=== PATIENT | male | born 1980 | race Caucasian/White ===

== ENCOUNTER 2016-11-03 03:25 | Inpatient (IN) | payer OTHER ==
[~2016-11-03] VITALS: Ht 167.6 cm; Wt 84.4 kg
[2016-11-03 03:36] VITALS: BP 157/93
--- NOTE | 2016-11-03 03:41 | NUR ---
Naz palm in [facility] - 11/03/16 at 0342 by [facility] TO BED 4
--- NOTE | 2016-11-03 03:42 | NUR ---
TO BED 5.
--- NOTE | 2016-11-03 03:43 | NUR ---
36Y M BIB SELF C/O RUQ PAIN X 3 YEARS WORST TODAY 8/10;VOMIT 5 EPISODES IN 3 HOURS . SKIN IS PINK/WARM/DRY; AAOX4 WITH EVEN AND STEADY GAIT; LUNGS CLEAR BL; HR EVEN AND REGULAR; PT DENIES ANY FEVER, CP, SOB, OR COUGH AT THIS TIME; PATIENT STATES PAIN OF 8/10 AT THIS TIME; VSS; PATIENT POSITIONED FOR COMFORT; HOB ELEVATED; BEDRAILS UP X2; BED DOWN. ER MD MADE AWARE OF PT STATUS.
--- NOTE | 2016-11-03 03:44 | NUR ---
Patient being evaluated by physician at bedside.
[2016-11-03] MEDS ORDERED: ONDANSETRON 4 MG/2 ML VIAL IVP ONE (03:45)
[2016-11-03] MEDS ORDERED: NACL 0.9% 1,000 ML IV ONE ×2 (03:55→05:20)
[2016-11-03] MEDS ORDERED: MORPHINE SULFATE 4 MG/ML SYR IVP ONE (03:55)
[2016-11-03 03:57] LABS: BASOPHILS # (AUTO) 0.2 K/uL (0.00-0.22); BASOPHILS % (AUTO) 2.9 % (0.0-2.0); EOSINOPHILS # (AUTO) 0.2 K/uL (0-0.4); EOSINOPHILS % (AUTO) 2.7 % (0.0-4.0); HEMATOCRIT 49.3 % (36-52); HEMOGLOBIN 16.5 g/dL (12.0-18.0); LYMPHOCYTES # (AUTO) 2.4 K/uL (2.0-11.5); LYMPHOCYTES % (AUTO) 32.4 % (20.5-51.1); MEAN CORPUSCULAR HEMOGLOBIN 30 pg (27-31); MEAN CORPUSCULAR HGB CONC 34 g/dL (33-37); MEAN CORPUSCULAR VOLUME 88 fL (80-94); MONOCYTES # (AUTO) 0.6 K/uL (0.8-1.0); MONOCYTES % (AUTO) 8.7 % (1.7-9.3); NEUTROPHILS # (AUTO) 4.1 K/uL (1.8-7.7); NEUTROPHILS % (AUTO) 53.3 % (42.2-75.2); PLATELET COUNT (AUTO) 266 K/uL (140-450); RED BLOOD CELL COUNT(AUTO) 5.62 MIL/uL (4.20-6.10); RED CELL DISTRIBUTION WIDTH 12.1 % (11.6-13.7); WHITE BLOOD COUNT (AUTO) 7.5 K/uL (4.8-10.8)
[2016-11-03] MEDS ORDERED: HYDROmorphone 1 MG/ML AMP IVP ONE (04:05)
[2016-11-03 04:17] LABS: ALBUMIN 3.9 g/dL (3.4-5.0); ANION GAP 15.2 (8-16); CALCIUM 8.6 mg/dL (8.5-10.1); CARBON DIOXIDE 26.3 mmol/L (21-32); CREATININE 1.1 mg/dL (0.6-1.3); POTASSIUM 3.5 mmol/L (3.5-5.1); TOTAL BILIRUBIN 1.9 mg/dL (0.0-1.0); TOTAL PROTEIN, SERUM 7.2 g/dL (6.4-8.2)
[2016-11-03 04:55] LABS: BILIRUBIN,URINE 1+ (NEGATIVE); BLOOD, URINE TRACE-L (NEGATIVE); COLOR,URINE YELLOW (YELLOW); LEUKOCYTE ESTERASE ,URINE NEGATIVE (NEGATIVE); NITRITE, URINE NEGATIVE (NEGATIVE); PROTEIN,URINE TRACE (NEGATIVE); UGLUCOSE NEGATIVE (NEGATIVE)
[2016-11-03 05:18] LABS: ICTOTEST NEGATIVE (NEGATIVE)
[2016-11-03 05:19] LABS: BACTERIA,URINE 1+ /HPF (None Seen); CALCIUM OXALATE CRYSTALS,UR 0-10 /HPF (None Seen); MUCUS,URINE 1+ /LPF (None Seen); RBC,URINE NONE SEEN /HPF (0-5); SQUAMOUS EPITHELIAL CELL,UR 0-3 (FEW) /LPF (0-3 (FEW)); WBC,URINE 0-5 (RARE) /HPF (0-5)
[2016-11-03 05:20] LABS: APPEARANCE,URINE HAZY (CLEAR)
[2016-11-03] MEDS ORDERED: PIPERACILLIN/TAZOBACTAM 3.375 GM in DEXTROSE 5% 50 ML IV ONE (05:20)
[2016-11-03] MEDS ORDERED: PIPERACILLIN/TAZOBACTAM 3.375 GM VIAL IV ONE (05:28)
[2016-11-03] MEDS ORDERED: ONDANSETRON 4 MG/2 ML VIAL IVP PRN (07:15)
[2016-11-03] MEDS ORDERED: ACETAMINOPHEN 325 MG TAB PO PRN (07:15)
[2016-11-03] MEDS ORDERED: MORPHINE SULFATE 4 MG/ML SYR IVP PRN (07:15)
--- NOTE | 2016-11-03 07:20 | NUR ---
Pt report given to MATEO GALLARDO . Transfer of care at this time.
--- NOTE | 2016-11-03 08:53 | NUR ---
Patient will be admitted to care of DR HAWTHORNE. Admited to ICU. Will go to room 3. Belongings list completed. Report to KAREN.
[2016-11-03 09:18] VITALS: BP 136/84
--- NOTE | 2016-11-03 09:18 | NUR ---
ADMITTED A 36 YEAR OLD MALE FROM ER WITH DIAGNOSIS OF PANCREATITIS,GALLSTONE.NO CO ABDOMINAL PAIN OR OTHER PAIN RIGHT NOW.NO CO SHORTNESS OF BREATH.ON ROOM AIR SATURATING 97 PERCENT.RIGHT AC 18 GAUGE SALINE LOCK .NO SIGNS OF INFILTRATION.WILL MONITOR.PT USING URINAL.
--- NOTE | 2016-11-03 10:12 | NUR ---
PATIENT HAS BEEN SCREENED AND CATEGORIZED MODERATE NUTRITION RISK. PATIENT WILL BE SEEN WITHIN 3-5 DAYS OF ADMISSION. 11/05/16-11/07/[address]
[2016-11-03] MEDS: NACL 0.45% 1,000 ML IV SCH ×3 (10:33→20:55)
[2016-11-03] MEDS ORDERED: NICOTINE TRANSD SYS 14 MG/24 HR PATCH TD SCH (12:00)
[2016-11-03 12:09] LABS: AMPHETAMINE, URINE NEG. ng/ml (NEG <=1000); BARBITURATE, URINE NEG. ng/ml (NEG <=200); BENZODIAZEPINE, URINE NEG. ng/mL (NEG <=200); CANNABINOID, URINE NEG. ng/mL (NEG <=50); COCAINE, URINE NEG. ng/mL (NEG <=300); OPIATE, URINE NEG. ng/mL (NEG <=2000); PHENCYCLIDINE SCREEN,URINE NEG. ng/mL (NEG <=25)
--- NOTE | 2016-11-03 12:48 | NUR ---
CM NOTE INITIAL REVIEW SENT TO [facility] FAX# [phone] GRACE PH# [phone]
[2016-11-03 13:00] VITALS: BP 125/71
--- NOTE | 2016-11-03 14:00 | NUR ---
NO CO PAIN
[2016-11-03 16:00] VITALS: BP 128/97
--- NOTE | 2016-11-03 16:00 | NUR ---
NO CO PAIN
--- NOTE | 2016-11-03 17:27 | NUR ---
DR JANAE DOWELL FOR CONSULT.NO CO PAIN
--- NOTE | 2016-11-03 18:20 | NUR ---
DR CARDOSO CALLED BACK AND NOTIFIED OF CONSULT.PATIENT AND FAMILY MADE AWARE
--- NOTE | 2016-11-03 19:15 | NUR ---
RECEIVED REPORT FROM PAULINA JONES. INITIAL ASSESSMENT COMPLETED. PT IS AWAKE, ALERT, ORIENTED X4. PLAN OF CARE DISCUSSED WITH THE PATIENT. DENIES PAIN AT THIS TIME. IVF INFUSING WELL AT RIGHT AC 18G, PATENT, INTACT AT THIS TIME. PT IS ON NPO. SCDS IN PLACE. NO SIGNS OF DISTRESS, PT RESTING COMFORTABLY ON BED. BED IN LOW POSITION, SAFETY MEASURE ENSURE, CALL LIGHT WITHIN REACH. WILL CONTINUE TO MONITOR.
[2016-11-03 20:00] VITALS: BP 132/74
--- NOTE | 2016-11-03 22:51 | NUR ---
PT ASLEEP. NO SIGNS OF DISTRESS NOTED. WILL CONTINUE TO MONITOR.
[2016-11-04] VITALS (7 sets, daily range): BP systolic 114–138; BP diastolic 69–95
--- NOTE | 2016-11-04 00:21 | NUR ---
PT DENIES PAIN AT THIS TIME.
--- NOTE | 2016-11-04 02:48 | NUR ---
PT IS ASLEEP AT THIS TIME. NO SIGNS OF DISTRESS. WILL CONTINUE TO MONITOR.
--- NOTE | 2016-11-04 04:46 | NUR ---
TRIBAL COUNCIL MEMBER AT BEDSIDE FOR LAB DRAW.
[2016-11-04 05:29] LABS: BASOPHILS # (AUTO) 0.2 K/uL (0.00-0.22); BASOPHILS % (AUTO) 2.5 % (0.0-2.0); EOSINOPHILS # (AUTO) 0.1 K/uL (0-0.4); EOSINOPHILS % (AUTO) 2.4 % (0.0-4.0); HEMATOCRIT 45.8 % (36-52); HEMOGLOBIN 15.5 g/dL (12.0-18.0); LYMPHOCYTES # (AUTO) 1.8 K/uL (2.0-11.5); LYMPHOCYTES % (AUTO) 28.5 % (20.5-51.1); MEAN CORPUSCULAR HEMOGLOBIN 30 pg (27-31); MEAN CORPUSCULAR HGB CONC 34 g/dL (33-37); MEAN CORPUSCULAR VOLUME 88 fL (80-94); MONOCYTES # (AUTO) 0.5 K/uL (0.8-1.0); MONOCYTES % (AUTO) 8.4 % (1.7-9.3); NEUTROPHILS # (AUTO) 3.6 K/uL (1.8-7.7); NEUTROPHILS % (AUTO) 58.2 % (42.2-75.2); PLATELET COUNT (AUTO) 211 K/uL (140-450); RED BLOOD CELL COUNT(AUTO) 5.19 MIL/uL (4.20-6.10); RED CELL DISTRIBUTION WIDTH 11.9 % (11.6-13.7); WHITE BLOOD COUNT (AUTO) 6.2 K/uL (4.8-10.8)
--- NOTE | 2016-11-04 05:34 | NUR ---
REFUSED AM CARE EXCEPT PT AGREED TO BRUSH TEETH INDEPENDENTLY.
[2016-11-04 06:09] LABS: ALBUMIN 3.4 g/dL (3.4-5.0); ANION GAP 11.7 (8-16); CALCIUM 8.2 mg/dL (8.5-10.1); CARBON DIOXIDE 29.9 mmol/L (21-32); POTASSIUM 3.6 mmol/L (3.5-5.1); TOTAL BILIRUBIN 2.7 mg/dL (0.0-1.0); TOTAL PROTEIN, SERUM 6.4 g/dL (6.4-8.2)
[2016-11-04] MEDS: NACL 0.45% 1,000 ML IV SCH ×2 (06:42→17:14)
--- NOTE | 2016-11-04 07:18 | NUR ---
REPORT GIVEN TO PAULINA MARQUES FOR CONTINUITY OF CARE. PT RESTING COMFORTABLY ON BED.
--- NOTE | 2016-11-04 07:23 | NUR ---
RECEIVED PATIENT FROM [facility] RN, AWAKE ALERT, ORIENTED TO PERSON, PLACE, DATE AND TIME. ABLE TO MAKE HIS NEEDS KNOWN. NO COMPLAINTS OF PAIN NOTED AT THIS TIME. RIGHT AC PERIPHERAL IV PATENT AND INTACT TO NS 100 ML/HR. URINE AND BOWEL CONTINENT. CALL LIGHT WITHIN REACH.
[2016-11-04] MEDS: NICOTINE TRANSD SYS 14 MG/24 HR PATCH TD SCH (08:49)
--- NOTE | 2016-11-04 09:05 | NUR ---
PATIENT'S MOTHER DB AT BEDSIDE. UPDATED OF PATIENT'S STATUS.
--- NOTE | 2016-11-04 11:02 | NUR ---
PATIENT RESTING, NO COMPLAINTS OF PAIN MADE AT THIS TIME. KEPT ON NPO.
--- NOTE | 2016-11-04 13:05 | NUR ---
TRANSFERRED PATIENT TO [facility] VIA WHEELCHAIR ACCOMPANIED BY PATIENT'S MOTHER DB, NOT IN DISTRESS. NO COMPLAINTS OF PAIN MADE. REPORT GIVEN TO PRIMARY RN. DR CARDOSO CAME AND SEEN PATIENT. WITH NEW ORDERS. PRIMARY RN AT BEDSIDE.
--- NOTE | 2016-11-04 13:10 | NUR ---
PATIENT ARRIVED FROM ICU. PATIENT AWAKE, ALERT, ORIENTED AND AMBULATORY. NO S/S OF DISTRESS NOTED. DENIES PAIN AT THIS TIME. IV LINE NOTED TO THE RIGHT AC INTACT WITH IVF INFUSING WELL. PATIENT SEEN BY DR CARDOSO. DOCTOR DISCUSSED PLANNED PROCEDURE FOR THE PATIENT TOMORROW. PATIENT VERBALIZED UNDERSTANDING
--- NOTE | 2016-11-04 15:46 | NUR ---
CM NOTE CONCURRENT REVIEW SENT TO [facility] FAX# [phone] PH# [facility]ACE [phone]
--- NOTE | 2016-11-04 19:22 | NUR ---
PATIENT REPORT GIVEN AT BEDSIDE. PATIENT ENDORSED IN STABLE CONDITION
--- NOTE | 2016-11-04 19:23 | NUR ---
RECEIVED PT FROM BEATA GALLARDO PT IS AAOX4 AMBULATORY IV ON RT ARM INFUSING WELL DENIES ANY AIN AT THIS TIME INITIAL ASSESSMENT DONE
--- NOTE | 2016-11-04 22:00 | NUR ---
PT RESTING ON BED NOT DISTRESS NOTED
[2016-11-05] VITALS: BP 120/84
--- NOTE | 2016-11-05 01:00 | NUR ---
PT VOIDING WELL DENIES ANY PAIN NOT DISTRESS NOTED
[2016-11-05] MEDS: NACL 0.45% 1,000 ML IV SCH (03:08)
[2016-11-05 04:00] VITALS: BP 128/68
--- NOTE | 2016-11-05 04:23 | NUR ---
SPONGE BATH GIVEN, LINEN CHANGED PT REMAIN STABLE AT THIS TIME NOT PAIN NOTED
--- NOTE | 2016-11-05 05:31 | NUR ---
PT RESTING ON BED NPO FOR LAP FELI THIS AM NOT DISTRESS NOTED AT THIS TIME
--- NOTE | 2016-11-05 05:49 | NUR ---
PT SLEEPING DENIES ANY PAIN IV ON RT ARM INFUSING WEL
[2016-11-05 06:34] LABS: BASOPHILS # (AUTO) 0.2 K/uL (0.00-0.22); BASOPHILS % (AUTO) 2.6 % (0.0-2.0); EOSINOPHILS # (AUTO) 0.1 K/uL (0-0.4); EOSINOPHILS % (AUTO) 1.7 % (0.0-4.0); HEMATOCRIT 46.1 % (36-52); HEMOGLOBIN 15.1 g/dL (12.0-18.0); LYMPHOCYTES # (AUTO) 1.5 K/uL (2.0-11.5); LYMPHOCYTES % (AUTO) 23.9 % (20.5-51.1); MEAN CORPUSCULAR HEMOGLOBIN 29 pg (27-31); MEAN CORPUSCULAR HGB CONC 33 g/dL (33-37); MEAN CORPUSCULAR VOLUME 87 fL (80-94); MONOCYTES # (AUTO) 0.3 K/uL (0.8-1.0); MONOCYTES % (AUTO) 5.4 % (1.7-9.3); NEUTROPHILS # (AUTO) 4.4 K/uL (1.8-7.7); NEUTROPHILS % (AUTO) 66.4 % (42.2-75.2); PLATELET COUNT (AUTO) 222 K/uL (140-450); RED BLOOD CELL COUNT(AUTO) 5.29 MIL/uL (4.20-6.10); RED CELL DISTRIBUTION WIDTH 12.3 % (11.6-13.7); WHITE BLOOD COUNT (AUTO) 6.5 K/uL (4.8-10.8)
[2016-11-05 06:45] LABS: INR 1.1 (0.8-1.2); PARTIAL THROMBOPLASTIN TIME 25.7 secs (22-35.6); PROTHROMBIN TIME 10.5 secs (10.8-13.4)
[2016-11-05 06:46] LABS: ALBUMIN 2.9 g/dL (3.4-5.0); CALCIUM 8.6 mg/dL (8.5-10.1); CARBON DIOXIDE 29.6 mmol/L (21-32); POTASSIUM 3.6 mmol/L (3.5-5.1); TOTAL BILIRUBIN 2.4 mg/dL (0.0-1.0); TOTAL PROTEIN, SERUM 6.5 g/dL (6.4-8.2)
--- NOTE | 2016-11-05 07:18 | NUR ---
RECEIVED REPORT OF PT FROM NUCLEAR MEDICINE TECHNICIAN NURSE AT BEDSIDE. INTRODUCED MYSELF AND UPDATED THE BOARD. PT IS ALERT AWAKE AND ORIENTED. PT STATED HE HAS NO PAIN AT THIS TIME. UPDATED PT ON PLAN OF CARE FOR TODAY. PT HAS IV ON R AC 20 G RUNNING 1/2NS@100ML/HR. CALL LIGHT WITHIN REACH. WILL CONTINUE TO MONITOR.
[2016-11-05 08:00] VITALS: BP 116/67
[2016-11-05] MEDS: NICOTINE TRANSD SYS 14 MG/24 HR PATCH TD SCH (09:16)
--- NOTE | 2016-11-05 09:41 | NUR ---
PT IS RESTING COMFORTABLY IN BED. IV ANTIBIOTICS INFUSING. PT TOLERATING WELL. CALL LIGHT WITHIN REACH. WILL CONTINUE TO MONITOR.
--- NOTE | 2016-11-05 11:15 | NUR ---
PT IS RESTING COMFORTABLY IN BED. CALL LIGHT WITHIN REACH. WILL CONTINUE TO MONITOR.
--- NOTE | 2016-11-05 13:06 | NUR ---
SPOKE TO OR NURSE ON THE PHONE, OR NURSE STATED DR. CARDOSO WILL NOT PERFORM SURGERY UNTIL AFTER 4. SURGERY TIME IS NOT DEFINITE AT THIS TIME. UPDATED PT ON THE PLAN. PT VERBALIZED UNDERSTANDING. WILL CONTINUE TO MONITOR.
--- NOTE | 2016-11-05 13:45 | NUR ---
11/05/16 RD INITIAL ASSESSMENT COMPLETED PLEASE REFER TO NUTRITION ASSESSMENT UNDER CARE ACTIVITY FOR ESTIMATED NUTRITIONAL NEEDS. 1. WHEN MEDICALLY FEASIBLE, RESUME PO DIET: TO START ON CLEAR LIQUIDS, AND ADVANCE TOLERATED TO LOW FAT DIET 2. RD TO FOLLOW-UP 3-5 DAYS; MODERATE RISK SUSIE GREGORIO RD
--- NOTE | 2016-11-05 13:55 | NUR ---
CM NOTE CONCURRENT REVIEW SENT TO [facility] FAX# [phone] PH# [facility]ACE [phone]
[2016-11-05 16:00] VITALS: BP 137/80
--- NOTE | 2016-11-05 17:53 | NUR ---
PATIENT LEFT FOR SURGERY
[2016-11-05] MEDS ORDERED: BUPIVACAINE-MPF/EPI 0.25% 30 ML VIAL INJ ONE (19:03)
--- NOTE | 2016-11-05 19:10 | NUR ---
ENDORSED CARE OF PT TO DEBARKER OPERATOR NURSE. PT STILL IN OR.
[2016-11-05] MEDS ORDERED: ONDANSETRON 4 MG/2 ML VIAL ONE (19:40)
[2016-11-05] MEDS ORDERED: NEOSTIGMINE 1:1000 10 MG/10 ML VIAL ONE (19:40)
[2016-11-05] MEDS ORDERED: DEXAMETHASONE 4 MG/ML VIAL ONE (19:40)
[2016-11-05] MEDS ORDERED: PROPOFOL 200 MG/20 ML VIAL IV ONE (19:40)
[2016-11-05] MEDS ORDERED: KETOROLAC 30 MG/ML VIAL ONE (19:40)
[2016-11-05] MEDS ORDERED: DESFLURANE 240 ML BTL INH ONE (19:40)
[2016-11-05] MEDS ORDERED: ROCURONIUM 50 MG/5 ML VIAL IV ONE (19:40)
[2016-11-05] MEDS ORDERED: GLYCOPYRROLATE 0.2 MG/ML VIAL ONE (19:40)
[2016-11-05] MEDS ORDERED: fentaNYL 0.05 MG/ML VIAL ONE (19:44)
[2016-11-05] MEDS ORDERED: HYDROmorphone PFS 2 MG/ML SYR ONE ×2 (19:44→21:22)
[2016-11-05] MEDS ORDERED: ONDANSETRON 4 MG/2 ML VIAL IVP PRN (20:15)
[2016-11-05] MEDS: HYDROmorphone 1 MG/ML AMP IVP PRN ×4 (21:15→21:45)
[2016-11-05 22:00] VITALS: BP 135/67
--- NOTE | 2016-11-05 22:00 | NUR ---
RECEIVED PT FROM OR VIA COLIN PT IS AAOX4 IV ON RT AC INFUSING WELL ON BILATERAL SEQUENTIAL STOCKING, ABDOMEN HAS 4 SMALL INCISIONS S/P LAP FELI .CANALES CATH DRAINING WELL YELLOW URINE PAIN MEDIC WAS GIVEN PT WILL BE MONITORING
[2016-11-05] MEDS: MORPHINE SULFATE 2 MG/ML SYR IVP PRN (22:44)
[2016-11-06] VITALS: BP 115/45
--- NOTE | 2016-11-06 01:16 | NUR ---
PT SLEEPING WELL NOT DISTRESS NOTED IV ON RT AC INFUSING WELL
[2016-11-06] MEDS: MORPHINE SULFATE 2 MG/ML SYR IVP PRN ×2 (03:51→08:45)
[2016-11-06] MEDS: NACL 0.45% 1,000 ML IV SCH (03:53)
--- NOTE | 2016-11-06 04:30 | NUR ---
AFTER PAIN MEDIC GIVEN PT REMAIN STABLE SLEEPING WELL NOT DISTRESS NOTED
--- NOTE | 2016-11-06 06:32 | NUR ---
A NEW IV IS INSERTED ON RT HAND GAUGE # 22 IV FLUIDS INFUSING WELL
--- NOTE | 2016-11-06 06:33 | NUR ---
CANALES CATH IS REMOVED ORDER
[2016-11-06 06:48] LABS: BASOPHILS # (AUTO) 0.1 K/uL (0.00-0.22); BASOPHILS % (AUTO) 0.7 % (0.0-2.0); EOSINOPHILS # (AUTO) 0.1 K/uL (0-0.4); EOSINOPHILS % (AUTO) 1.9 % (0.0-4.0); HEMATOCRIT 44.8 % (36-52); HEMOGLOBIN 15.3 g/dL (12.0-18.0); LYMPHOCYTES # (AUTO) 0.5 K/uL (2.0-11.5); LYMPHOCYTES % (AUTO) 6.7 % (20.5-51.1); MEAN CORPUSCULAR HEMOGLOBIN 30 pg (27-31); MEAN CORPUSCULAR HGB CONC 34 g/dL (33-37); MEAN CORPUSCULAR VOLUME 88 fL (80-94); MONOCYTES # (AUTO) 0.2 K/uL (0.8-1.0); MONOCYTES % (AUTO) 2.1 % (1.7-9.3); NEUTROPHILS # (AUTO) 6.4 K/uL (1.8-7.7); NEUTROPHILS % (AUTO) 88.6 % (42.2-75.2); PLATELET COUNT (AUTO) 227 K/uL (140-450); RED BLOOD CELL COUNT(AUTO) 5.12 MIL/uL (4.20-6.10); RED CELL DISTRIBUTION WIDTH 12.2 % (11.6-13.7)
[2016-11-06 07:11] LABS: ALBUMIN 3.4 g/dL (3.4-5.0); CALCIUM 8.1 mg/dL (8.5-10.1); CARBON DIOXIDE 22.6 mmol/L (21-32); CREATININE 1.1 mg/dL (0.6-1.3); POTASSIUM 4.6 mmol/L (3.5-5.1); TOTAL BILIRUBIN 1.9 mg/dL (0.0-1.0); TOTAL PROTEIN, SERUM 6.6 g/dL (6.4-8.2)
--- NOTE | 2016-11-06 07:28 | NUR ---
RECEIVED PT IN BED. AWAKE, ALERT, ORIENTED X4. NO SOB NOTED. DENIES ANY PAIN OR DISCOMFORT AT THIS TIME. ABDOMINAL WOUND DRESSING DRY AND INTACT. PT AMBULATORY WITH STAND BY ASSIST. SAFETY PRECAUTION IN PLACE. CALL LIGHT WITHIN REACH.
[2016-11-06 07:44] LABS: WHITE BLOOD COUNT (AUTO) 7.3 K/uL (4.8-10.8)
[2016-11-06 08:00] VITALS: BP 108/50
[2016-11-06 08:42] VITALS: BP 131/80
[2016-11-06] MEDS ORDERED: NICOTINE TRANSD SYS 14 MG/24 HR PATCH TD SCH (08:45)
[2016-11-06] MEDS ORDERED: ACET-2869 PO (09:28)
[2016-11-06] MEDS ORDERED: DOCU-264 PO (09:28)
[2016-11-06] MEDS: NICOTINE TRANSD SYS 14 MG/24 HR PATCH TD SCH (09:53)
--- NOTE | 2016-11-06 11:48 | NUR ---
DR. CARDOSO CAME TO SEE PT. AWARE OF PT DISCHARGE
--- NOTE | 2016-11-06 13:00 | NUR ---
DISCHARGE TEACHINGS AND INSTRUCTIONS GIVEN TO PATIENT. PT VERBALIZED UNDERSTANDING. PT SIGNED DISCHARGE PAPERS. MOTHER AT BEDSIDE. NAME ARM BAND REMOVED. IV CANNULA REMOVED AND INTACT. PHOTOS TAKEN FOR POST ABDOMEN SURGERY. NO DISCHARGE NOTED. NO SOB. DENIES ANY PAIN OR DISCOMFORT AT THIS TIME.
--- NOTE | 2016-11-06 13:07 | NUR ---
WHEELED PATIENT OUT TO THE HOSPITAL PARKING LOT. NO SOB NO PAIN NOTED. WENT HOME WITH MOTHER WITH PRIVATE OWNED VEHICLE. DISCHARGED PT ON STABLE CONDITION. VITAL SIGNS FOLLOWS. BP 110/75 DC 66, RR 19. O2 SAT 97% ROOM AIR. T 97.6.
== END 2016-11-06 13:07 | disposition home or self-care (01) | DRG 263 ==
LOC: MED 03:25 → MIC 07:16 → MTU 11-04 12:59
PROVIDERS: ADMIT Hospitalist; ATTEND Hospitalist
PROC: 0FT44ZZ Resection of Gallbladder, Percutaneous Endoscopic Approach (ICD-10-PCS; principal; 2016-11-05 12:00)
DX: K85.10 Biliary acute pancreatitis without necrosis or infection (principal); K80.00 Calculus of gallbladder with acute cholecystitis without obstruction; F10.21 Alcohol dependence, in remission; G89.29 Other chronic pain; K80.10 Calculus of gallbladder with chronic cholecystitis without obstruction; K21.9 Gastro-esophageal reflux disease without esophagitis; E66.9 Obesity, unspecified; Z88.2 Allergy status to sulfonamides; Z87.891 Personal history of nicotine dependence; Z68.30 Body mass index [BMI] 30.0-30.9, adult
CPT/HCPCS: 36415; 74150; 76705; 80053; 80305; 81001; 82150; 83690; 85025; 85610; 85730; 86886; 86900; 86901; 87081; 87086; 96361; 96365; 96375; 99285; J0696; J1100; J1170; J1885; J2270; J2405; J2543; J2704; J2710; J3010; J3490; J7030; J7060; Q0092